=== PATIENT | male | born 1955 | race Caucasian/White ===

== ENCOUNTER 2018-09-29 07:18 | Emergency (ER) | payer BC ==
[2018-09-29 07:34] VITALS: BP 139/95
--- NOTE | 2018-09-29 08:10 | UC ---
Upper Extremity HPI - HPI Summary HPI Summary: Patient is a 63 year old gentleman, who present today to the urgent care with left shoulder pain for past 1 week. He reports that he was lifting weights about a week ago and felt a twinge. Initially had the pain in the interscapular area and now is more shoulder points to the anterolateral aspect and also in the left trapezius area. He denies any fall or any prior injuries to the left shoulder. Denies any numbness and tingling or radicular symptoms. Denies any neck pain. Pain is worse with any motion. Has been taking ibuprofen without much relief. Denies any fever, chills, cough chest pain or shortness of breath . Denies any abdominal pain , nausea or vomiting , diarrhea or constipation. - History of Current Complaint Chief Complaint: UCUpperExtremity Stated Complaint: SHOULDER PAIN Time Seen by Provider: 09/29/18 08:09 Hx Obtained From: Patient Pain Intensity: 3 - Allergies/Home Medications Allergies/Adverse Reactions: Allergies Allergy/AdvReac Type Severity Reaction Status Date / Time No Known Allergies Allergy Verified 09/29/18 07:33 Home Medications: Home Medications Ibuprofen 200 mg PO ONCE PRN 09/29/18 [History Confirmed 09/29/18] PMH/Surg Hx/FS Hx/Imm Hx - Additional Past Medical History Additional PMH: Alopecia totalis Anxiety Previously Healthy: Yes - Surgical History Surgical History: Yes Surgery Procedure, Year, and Place: Ureter straighted out 30 yrs ago. HYDROCELE. vasectomy - Social History Alcohol Use: Daily Alcohol Amount: 2-3 beers per day Substance Use Type: None Smoking Status (MU): Never Smoked Tobacco Review of Systems All Other Systems Reviewed And Are Negative: Yes Constitutional: Positive: Negative Skin: Positive: Negative Eyes: Positive: Negative ENT: Positive: Negative Respiratory: Positive: Negative Cardiovascular: Positive: Negative Gastrointestinal: Positive: Negative Genitourinary: Positive: Negative Motor: Positive: Negative Neurovascular: Positive: Negative Musculoskeletal: Positive: Arthralgia - Left shoulder Neurological: Positive: Negative Psychological: Positive: Negative Is Patient Immunocompromised?: No Physical Exam - Summary Physical Exam Summary: Physical Exam: Const: Appears well. No signs of apparent distress present. Alert and oriented x 3. Musculo: Walks with a normal gait. Head/Face: Atraumatic, normocephalic on inspection. Eyes: EOMI and PERRLA in both eyes. Conjunctivae clear. No discharge noted ENT: Hearing normal Respiratory: Respirations are unlabored. CVS: Regular rate and Rhythm, S1S2 normal , no murmurs identified. Extremities: Peripheral circulation is grossly normal. Pulses 2+ Abdomen : Soft non tender , nondistended , Bowel sounds present . No guarding , rebound tenderness or rigidity noted. Skin: No lesions or rash located on the upper extremities or on the lower extremities. Neuro: Cranial nerves II to XII intact, motor and sensory intact. DTR Intact bilaterally. Mood is normal. Affect is normal. C-spine: No midline or paraspinal tenderness noted. He has significant tenderness to palpation on the left trapezius muscle and some in the left rhomboid area. Full range of motion of C-spine without much pain. Spurling test negative. DTRs in the upper extremities negative. Motor 5/5 in upper extremity. Left Shoulder: Inspection and Palpation: No visible deformities noted. No tenderness to palpation on shoulder acromioclavicular or SC joint. No tenderness of the greater tuberosity. Glenohumeral joint: Full range of motion, some pain upon extreme range of motion Strength: supraspinatus 5/5, Infraspinatus 5/5, subscapularis 5/5, External rotation 5/5. Tone: Normal muscle tone of the shoulder. Special tests: Empty can test negative, Neer sign and Landon test negative, drop arm test negative, lift off test negative,cross arm test negative, Yergusson test and speed's test negative. Genesee's test negative Normal distal sensation and pulses. Triage Information Reviewed: Yes Vital Signs: Initial Vital Signs Temp 97.8 F 09/29/18 07:27 Pulse 65 09/29/18 07:27 Resp 18 09/29/18 07:27 BP 139/95 09/29/18 07:27 Pulse Ox 98 09/29/18 07:27 Vital Signs Reviewed: Yes Diagnostics - Radiology No standard instances Radiology Interpretation Completed By: Radiologist - Left shoulder x-ray: moderate osteoarthritis of the a.c. and glenohumeral joints. ALIGNMENT: There is no dislocation. SOFT TISSUES: Unremarkable. OTHER FINDINGS: None. IMPRESSION:OSTEOARTHRITIS. NO ACUTE OSSEOUS INJURY. IF SYMPTOMS PERSIST, RECOMMEND REPEAT IMAGING. Upper Extremity Course/Dx - Course Course Of Treatment: During the visit today, we obtained left shoulder x-rays that demonstrated moderate osteoarthritis of the acromioclavicular and glenohumeral joint. Symptoms appear to be consistent with left shoulder joint osteoarthritis flare along with left trapezius and rhomboid strain. His rotator cuff strength appears within normal limits. We discussed the findings and further plan. He was given Toradol 30 mg injection today. I advised him to take Aleve twice daily for 3-5 days and after that as needed. I also discussed the need for physical therapy but he declined at this time and wants to discuss with orthopedics. I will prescribe Vicodin at bedtime for pain. He will follow up with orthopedics within 2-3 days. Patient expressed understanding . - Differential Dx/Diagnosis Provider Diagnosis: Left shoulder pain, Primary osteoarthritis, left shoulder, Strain of left trapezius muscle Discharge - Sign-Out/Discharge Documenting (check all that apply): Patient Departure All imaging exams completed and their final reports reviewed: No Studies - Discharge Plan Condition: Stable Disposition: HOME Prescriptions: Hydrocodone/Acetaminophen [Vicodin 5-300 mg Tablet] 1 tab PO BEDTIME PRN 7 Days #7 tablet MDD 1 PRN Reason: Pain Patient Education Materials: Muscle Strain (ED), Osteoarthritis (ED) Referrals: Mando Charlton MD [Primary Care Provider] - Go Crabtree MD [Medical Doctor] - 3 Days Additional Instructions: Please start taking the medication as prescribed to the pharmacy . Try gentle range of motion exercises. Follow up with orthopedics 2-3 days Patients blood pressure slightly high in Urgent care today , plan follow up with PCP for better control within a month Return to Urgent care / ER if symptoms get worse. - Billing Disposition and Condition Condition: STABLE Disposition: Home
[2018-09-29] MEDS ORDERED: Ketorolac INJ* 30 MG/ML 1 ML VIAL IM ONE (08:51)
== END 2018-09-29 09:24 | disposition home or self-care (01) ==
LOC: UCEAST 07:18
DX: S46.812A Strain of other muscles, fascia and tendons at shoulder and upper arm level, left arm, initial encounter (principal); M19.012 Primary osteoarthritis, left shoulder; X50.0XXA Overexertion from strenuous movement or load, initial encounter; Y93.B3 Activity, free weights; Y92.9 Unspecified place or not applicable; L63.0 Alopecia (capitis) totalis; F41.9 Anxiety disorder, unspecified
CPT/HCPCS: 96372; 99212; G0463; J1885